=== PATIENT | female | born 1965 | race Caucasian/White ===

== ENCOUNTER 2020-05-08 08:13 | Outpatient (CLI) | payer BC, SELFPAY ==
--- NOTE | ~2020-05-08 | MM_ITS ---
EXAMINATION: MM screening [facility] HISTORY: Screening mammogram TECHNIQUE: Craniocaudal and mediolateral oblique 3-D tomosynthesis images were obtained and synthetic 2-D images were generated. CAD analysis was submitted and interpreted. COMPARISON: 01/11/2019, 11/15/2017, 09/29/2016 bilateral digital screening mammogram examinations BREAST PARENCHYMAL COMPOSITION: There are scattered areas of fibroglandular density. FINDINGS: There is no evidence of suspicious mass, calcification, or architectural distortion to sugg est malignancy in either breast. There has been no suspicious interval change. IMPRESSION: 1. No mammographic evidence of malignancy. 2. Recommend routine screening mammography in one year. BI-RADS Category 1: Negative Reviewed, dictated and finalized at location A. [employer]
== END 2020-05-08 08:14 | disposition home or self-care (01) ==
LOC: ANHIMG 08:16
PROVIDERS: Family Provider Family Medicine; PCP Family Medicine; Visit Provider Family Medicine
DX: Z12.31 Encounter for screening mammogram for malignant neoplasm of breast (principal)
CPT/HCPCS: 77063; 77067

== ENCOUNTER 2021-07-21 08:35 | Outpatient (CLI) | payer BC, SELFPAY ==
--- NOTE | ~2021-07-21 | MM_ITS ---
EXAMINATION: MM screening [facility] BI w k[facility] HISTORY: Screening TECHNIQUE: Craniocaudal and mediolateral oblique 3-D tomosynthesis images were obtained and synthetic 2-D images were generated. CAD analysis was submitted and interpreted. COMPARISON: Comparison to multiple prior studies sequentially, with oldest reviewed study dated 02/24. BREAST PARENCHYMAL COMPOSITION: There are scattered areas of fibroglandular density. FINDINGS: There is no evidence of suspicious mass, calcification, or architectural distortion to sugg est malignancy in either breast. There has been no suspicious interval change. IMPRESSION: 1. No mammographic evidence of malignancy. 2. Recommend routine screening mammography in one year. BI-RADS Category 1: Negative Reviewed, dictated and finalized at location A.
== END 2021-07-21 08:36 | disposition home or self-care (01) ==
LOC: ANHIMG 08:36
PROVIDERS: PCP Family Medicine; Visit Provider Family Medicine
DX: Z12.31 Encounter for screening mammogram for malignant neoplasm of breast (principal)
CPT/HCPCS: 77063; 77067

== ENCOUNTER 2021-10-12 09:53 | Outpatient (CLI) | payer BC, SELFPAY ==
--- NOTE | ~2021-10-12 | DEXA_ITS ---
Bone Density Report Name: MERY PATTERSON Age: 55 Sex: Female Ethnicity: White Date of : 1965 Indication: postmenopausal; screening for osteoporosis; height loss; Referring Provider: MILIND VASQUEZ Study: Bone densitometry was performed. Exam Date: October 12, 2021 Accession number: [id number] Bone Density: Region BMD T-score Z-score Classification AP Spine(L1-L4) 0.853 -1.8 -0.5 Osteopenia Femoral Neck (Left) 0.771 -0.7 0.5 Normal Total Hip (Left) 0.841 -0.8 0.0 Normal Femoral Neck (Right) 0.731 -1.1 0.1 Osteopenia Total Hip (Right) 0.833 -0.9 -0.1 Normal Total Hip Mean 0.837 -0.9 -0.1 Normal World Health Organization criteria for BMD impression classify patients as: Normal (T-score at or above -1.0), Osteopenia (T-score between -1.0 and -2.5), or Osteoporosis (T-score at or below -2.5). 10-year Fracture Risk(1): Major Osteoporotic Fracture 6.3% Hip Fracture 0.3% Reported Risk Factors: [place] (), Neck BMD=0.731, BMI=32.8 (1) FRAX(R) Version 3.08. Fracture probability calculated for an untreated patient. Fracture probability may be lower if the patient has received treatment. Clinical Information Provided by Patient: Patient maximum height was 67 Menopause Age: 52 Drinks caffeinated beverages Onset of menses at age 11 Number of children 2 Impression: The patient has low bone mass, based on the Total Spine T-score. The patient has an estimated ten-year risk of hip fracture of 0.3% and an estimated ten-year risk of major fracture of 6.3%, based on the WHO FRAX algorithm. Discussion: BONE DENSITY IS LOW AT ONE OR MORE SKELETAL SITES. This patient's lowest T-score is low at one or more skeletal sites. It meets the World Health Organization's (WHO) criteria for ?low bone mass? (T-score between -1.0 and -2.5). The patient's 10-year risk of fracture as calculated by FRAX is less than the threshold where pharmacological therapy is recommended by the National Osteoporosis Foundation (NOF). However, all treatment decisions require clinical judgment and consideration of individual patient factors, including patient preferences, comorbidities, previous drug use, risk factors not captured in the FRAX model (e.g., frailty, falls, vitamin D deficiency, increased bone turnover, interval significant decline in bone density) and possible under or overestimation of fracture risk by FRAX. The patient should follow a healthful lifestyle (good nutrition with adequate calcium and vitamin D, and appropriate weight-bearing exercise). Follow-Up: Consider repeating this study in 2 to 3 years to reassess this patient's status, or sooner if there is some new clinical indication. Reported by: VICTORIA on 10/12/2021 10:15:00 AM. Reviewed,
== END 2021-10-12 09:54 | disposition home or self-care (01) ==
LOC: ANHIMG 09:56
PROVIDERS: PCP Family Medicine; Visit Provider Physician Assistant
DX: Z13.820 Encounter for screening for osteoporosis (principal); M85.88 Other specified disorders of bone density and structure, other site; M85.851 Other specified disorders of bone density and structure, right thigh
CPT/HCPCS: 77080

== ENCOUNTER 2021-12-30 00:06 | Day surgery (SDC) | payer BC, SELFPAY ==
[2021-12-13 14:01] VITALS: BMI 31.4
[2021-12-30 07:19] VITALS: BP 131/86; PULSE 76; RESP 16; TEMP 36; O2SAT 100; BMI 29.3
[2021-12-30] MEDS: LACTATED RINGERS 1,000 ML 150 ML IV CONT (07:28)
--- NOTE | 2021-12-30 07:32 | PM.HPGS ---
History of Present Illness History of Present Illness Consent: Risks, benefits, and alternatives have been discussed and questions answered. Patient agrees to proceed with procedure. Chief complaint: family hx colon ca,family hx colon polyps,neoplasm Narrative: Georgina Araiza is a 56 year old female Presents for screening colonoscopy. Patient's current weight appetite and bowel movements are normal. She denies abdominal pain. She has had no bleeding. Family history is significant her mother had colon cancer. Patient herself has had polyps previously. Previous colonoscopy by Dr. Sorto 2016 was unremarkable. Adenomatous colon polyp was removed in 2011. Patient presents today for neoplasia screening. Review of Systems Review of Systems: Review of systems noncontributory. [facility] Past Medical History Medical History (Updated 12/27/21 @ 14:11 by Hola Taylor PA-C) History of mammogram (~01/11/19) negative History of Papanicolaou smear of cervix (~08/14/17) negative Postmenopausal Surgical History Surgical History H/O dilation and curettage History of 2 sections History of arthroscopy of knee (~2015) History of colonoscopy (~12/19/16) diverticulosis, repeat 5 years History of colonoscopy with polypectomy (~06/13/11) transverse colon polyp, repeat 5 years Family History Family History Father Hypertension Family history of elevated blood lipids Family history of cardiovascular disease Malignant neoplasm of prostate Grandparent Family history of cardiovascular disease Mother Carcinoma of colon Other Family history of arthritis No family history of diabetes mellitus Social History Social History Smoking status: Never smoker Alcohol intake: current Drinks per week: 6 Substance use type: does not use Living arrangements: with family Spiritual care concerns: No Meds Home Medications and Allergies Home Medications Medication Instructions Recorded Confirmed Type lisinopril 10 See Rx Instructions .Route 02/22/21 12/27/21 Rx mg-hydrochlorothiazide 12.5 mg .COMPLEX #90 tabs tablet atorvastatin 20 mg tablet 20 mg PO QHS #90 tabs 12/27/21 12/30/21 Rx calcium carbonate 600 mg-vitamin 1 tablet PO BID 12/27/21 12/30/21 History D3 20 mcg (800 unit) chewable tablet (Caltrate 600 plus D) diclofenac sodium 75 mg 75 mg PO BID #60 tabs 12/27/21 12/30/21 Rx tablet,delayed release levothyroxine 50 mcg capsule 50 mcg PO DAILY #90 caps 12/27/21 12/30/21 Rx fbkxuemb-spp-qcvie ac 400 1 tablet PO DAILY 12/27/21 12/30/21 History mcg-calcium carb 500 mg-vit K1 20 mcg tablet (Women's 50 Plus Multivitamin) Allergies Allergy/AdvReac Type Severity Reaction Status Date / Time No Known Allergies Allergy Verified 12/30/21 07:17 Vital Signs Vital Signs - 24 hr 12/30/21 07:19 Temperature 96.8 F L Pulse Rate 76 Respiratory Rate 16 Blood Pressure 131/86 Pulse Oximetry 100 Oxygen Delivery Room Air Exam Narrative: Physical exam reveals patient to be alert. Vital signs stable. HEENT exam is unremarkable. Patient is anicteric. Lungs are clear to auscultation and percussion. Heart is without murmur or extra sounds. Abdomen bowel sounds are present soft nontender with no organomegaly. Digital external rectal exam is normal. Assessment and Plan Assessment and plan (1) Family history of colon cancer: Code(s): Z80.0 - Family history of malignant neoplasm of digestive organs Status: Acute Assessment and Plan: Patient's mother had colon cancer. For this reason screening colonoscopy advised at 5 year intervals. (2) History of colon polyps: Code(s): Z86.010 - Personal history of colonic polyps Status: Acute Assessment and Plan:
--- NOTE | 2021-12-30 07:54 | WPDANESEPPF ---
Anes - Initial Pre Proc Eval Procedure: Operation Date: 12/30/21 08:30 Proposed Procedures p Screening Colonoscopy - Truong Purdy MD Date/Time: 12/30/21 07:54 Surgeon: Truong Purdy MD Pre Op Diagnosis: family hx colon ca,family hx colon polyps,neoplasm Patient Data Age: 56 Gender: F Height: 1.7 m Weight: 85.1 kg Last Vital Signs Temp 96.8 F L 12/30/21 07:19 Pulse 76 12/30/21 07:19 Resp 16 12/30/21 07:19 BP 131/86 12/30/21 07:19 Pulse Ox 100 12/30/21 07:19 O2 Del Method Room Air 12/30/21 07:19 Allergies Allergy/AdvReac Type Severity Reaction Status Date / Time No Known Allergies Allergy Verified 12/30/21 07:17 Home Medications Medication Instructions Recorded Confirmed Type lisinopril 10 See Rx Instructions .Route 02/22/21 12/27/21 Rx mg-hydrochlorothiazide 12.5 mg .COMPLEX #90 tabs tablet atorvastatin 20 mg tablet 20 mg PO QHS #90 tabs 12/27/21 12/30/21 Rx calcium carbonate 600 mg-vitamin 1 tablet PO BID 12/27/21 12/30/21 History D3 20 mcg (800 unit) chewable tablet (Caltrate 600 plus D) diclofenac sodium 75 mg 75 mg PO BID #60 tabs 12/27/21 12/30/21 Rx tablet,delayed release levothyroxine 50 mcg capsule 50 mcg PO DAILY #90 caps 12/27/21 12/30/21 Rx oaqwbpro-kaa-pqffm ac 400 1 tablet PO DAILY 12/27/21 12/30/21 History mcg-calcium carb 500 mg-vit K1 20 mcg tablet (Women's 50 Plus Multivitamin) Patient hx anesthesia problems: none Family hx anesthesia problems: none Results Review: All pre-operative results and documents have been reviewed as part of the pre-operative evaluation. [facility] Past Medical History Medical History (Updated 12/27/21 @ 14:11 by Hola Taylor PA-C) History of mammogram (~01/11/19) negative History of Papanicolaou smear of cervix (~08/14/17) negative Postmenopausal Surgical History Surgical History H/O dilation and curettage History of 2 sections History of arthroscopy of knee (~2015) History of colonoscopy (~12/19/16) diverticulosis, repeat 5 years History of colonoscopy with polypectomy (~06/13/11) transverse colon polyp, repeat 5 years Family History Family History Father Hypertension Family history of elevated blood lipids Family history of cardiovascular disease Malignant neoplasm of prostate Grandparent Family history of cardiovascular disease Mother Carcinoma of colon Other Family history of arthritis No family history of diabetes mellitus Social History Social History Smoking status: Never smoker Alcohol intake: current Drinks per week: 6 Substance use type: does not use Living arrangements: with family Spiritual care concerns: No Anes - Eval Final PreProcedure Day of Procedure 12/30/21 07:54 Patient weight: obese Heart: regular rate and rhythm Lungs: clear to auscultation Airway: Mallampati scale class II Neurological: alert and oriented Last oral intake: >/= 8 hours ASA classification: II Emergent: no Anesthetic plan: proceed Anesthesia type and monitoring: general GIVS and standard monitoring Results Review: All pre-operative results and documents have been reviewed as part of the pre-operative evaluation. Informed Consent: The patient's anesthetic plan and its attendant risks and benefits were discussed with the patient/family/POA. Questions were solicited and answers provided to the satisfaction of the patient/family/POA.
--- NOTE | 2021-12-30 08:44 | SUR.OPER ---
No specimen retrieved for transverse colon polyp Dr. Purdy notified.
[2021-12-30 08:45] VITALS: BP 113/67; PULSE 75; RESP 19; O2SAT 95
[2021-12-30 08:55] VITALS: BP 108/67; PULSE 63; RESP 19; O2SAT 97
[2021-12-30 09:05] VITALS: BP 119/76; PULSE 63; RESP 16; O2SAT 99
== END 2021-12-30 09:11 | disposition home or self-care (01) ==
PROVIDERS: PCP Emergency Medicine; Visit Provider Internal Medicine Gastroenterology
PROC: 0DJD8ZZ Inspection of Lower Intestinal Tract, Via Natural or Artificial Opening Endoscopic (ICD-10-PCS; CPT 45378; principal; 2021-12-30 08:30)
DX: Z12.11 Encounter for screening for malignant neoplasm of colon (principal); K63.5 Polyp of colon; Z80.0 Family history of malignant neoplasm of digestive organs; E03.9 Hypothyroidism, unspecified
CPT/HCPCS: 45385; J2704; J7120

== ENCOUNTER 2022-08-31 13:47 | Outpatient (CLI) | payer BC, SELFPAY ==
--- NOTE | ~2022-08-31 | MM_ITS ---
EXAMINATION: MM screening [facility] BI w kenny HISTORY: Screening TECHNIQUE: Craniocaudal and mediolateral oblique 3-D tomosynthesis images were obtained and synthetic 2-D images were generated. CAD analysis was submitted and interpreted. COMPARISON: Comparison to multiple prior studies sequentially, with oldest reviewed study dated 08/2016. BREAST PARENCHYMAL COMPOSITION: There are scattered areas of fibroglandular density. FINDINGS: There is no evidence of suspicious mass, calcification, or architectural distortion to sugg est malignancy in either breast. There has been no suspicious interval change. IMPRESSION: 1. No mammographic evidence of malignancy. 2. Recommend routine screening mammography in one year. BI-RADS Category 1: Negative Reviewed, dictated and finalized at location A.
== END 2022-08-31 13:48 | disposition home or self-care (01) ==
LOC: ANHIMG 13:49
PROVIDERS: PCP Emergency Medicine; Visit Provider Physician Assistant
DX: Z12.31 Encounter for screening mammogram for malignant neoplasm of breast (principal)
CPT/HCPCS: 77063; 77067

== ENCOUNTER 2022-11-14 08:15 | Outpatient (RCR) | payer BC, SELFPAY ==
--- NOTE | 2022-11-04 15:02 | OPREHPOC ---
Outpatient Therapy Plan of Care This is a Multidisciplinary Plan of Care that may contain components documented by all disciplines (PT, OT, and ST.) PT Problem 1 PT Problem #1 Knowledge Deficit PT Goal 1 Goal Pt to be IND with issued HEP Target Visit 8 PT Problem 2 PT Problem #2 Pain PT Goal 1 Goal Pt to report pain no greater than 3/10 in the last week Target Visit 8 PT Goal 2 Goal Pt to report 75% improvement in overall symptoms Target Visit 8 PT Problem 3 PT Problem #3 Impaired Gait PT Goal 1 Goal Pt to ambulate with upright trunk posture. Target Visit 8 PT Problem 4 PT Problem #4 Impaired Strength PT Goal 1 Goal Pt to improve valente hip strength to 4+/5 Target Visit 8 PT Goal 2 Goal Pt to demonstrate 30lb lift and carry from ground level Target Visit 8 PT Problem 5 PT Problem #5 Pain PT Goal 1 Goal Pt to report completing a 2 mile walk without an increase in symptoms Target Visit 8
--- NOTE | 2022-11-04 15:03 | PTOPEVAL1 ---
Assessment and note entered by Sunil Yoon, PT, DPT Evaluation Information Assessment Status Evaluation Diagnosis R leg pain Onset 1 week Subjective Information Pt report initial medial thigh and groin pain, she was given muscle relaxers which have caused the pain to shift to her anterior/lateral thigh down to her knee, and low back. Pt declines a JERRY. Pt states she can stand no longer than 5 mins, and walk no more than 10 mins. Up until she this started she was walking her dog 2-3 miles a day. Pt rates her current pain as 10/10. Reported Pain Level Pain Score 10: Self Report Assessment PT Clinical Summary Georgina presents to therapy today for her initial evaluation with a diagnosis of R leg pain. Today she demonstrates decreased active lumbar motion in all directions with the most painful being extension. Pt demonstrates a flexion bias with proximation of symptoms with repeated motion and a maintained spinal neutral position in supine. She demonstrates valente hip weakness. She stands and ambulated with increased lumbar extension. Skilled therapy services are indicated to manage pain, to decreased peripheral symptoms, to improve standing posture, and to return to PLOF. Plan of Care Interventions Electrical Stimulation,Gait Training,Hot Pack/Cold Pack,Manual Therapy,Neuro Re-education,Patient/ Caregiver Educati,Therapeutic Activities, Therapeutic Exercise PT Services Indicated Yes Treatment Frequency and 2x/wk for 8 visits Duration These treatments will address the objective and functional deficits as defined above. The patient will be advanced safely and appropriately in order for the patient to progress towards his/her prior level of function. Additional exercises will be introduced and as well as a comprehensive home exercise program upon discharge, if needed, ?to ensure carryover of functional gains achieved in the clinic. This treatment plan has been reviewed and agreement upon by the patient.
--- NOTE | 2022-12-05 10:20 | PCPTNOTE ---
Patient did not show up for scheduled re-evaluation this date. Called and LVM with instructions to call clinic to follow up.
--- NOTE | 2022-12-05 11:40 | PTOPDC ---
Assessment and note entered by Sunil Yoon, PT, DPT Evaluation Information Assessment Status Discharge - Pt Not Present Diagnosis R leg pain Onset 1 week Subjective Information Pt called and states she is doing well and no longer needs therapy. Assessment PT Clinical Summary Georgina completed 4 visits of skilled therapy from tp 11/14/22. Per pt she is doing well and does not need additional therapy. She will be discharged at this time.
== END 2022-12-05 13:10 | disposition home or self-care (01) ==
LOC: ANHGOSHPT 08:15
PROVIDERS: PCP Emergency Medicine; Visit Provider Nurse Practitioner
DX: M79.604 Pain in right leg (principal)
CPT/HCPCS: 97012; 97110; 97112; 97161; 97530; 99199

== ENCOUNTER 2023-12-06 08:39 | Outpatient (CLI) | payer BC, SELFPAY ==
--- NOTE | ~2023-12-06 | MM_ITS ---
EXAMINATION: MM screening [facility] BI w kenny HISTORY: Screening mammogram TECHNIQUE: Craniocaudal and mediolateral oblique 3-D tomosynthesis images were obtained and synthetic 2-D images were generated. CAD analysis was submitted and interpreted. COMPARISON: 08/31/2022, 07/21/2021, 05/08/2020 BREAST PARENCHYMAL COMPOSITION:Not Dense. There are scattered areas of fibroglandular density. FINDINGS: No suspicious mass, calcification, or architectural distortion are identified in either christina ast to suggest malignancy. There has been no suspicious interval change. IMPRESSION: No mammographic evidence of malignancy. Recommend routine screening mammography in one year. BI-RADS Category 1: Negative Reviewed, dictated and finalized at location .
== END 2023-12-06 08:40 | disposition home or self-care (01) ==
LOC: ANHIMG 08:42
PROVIDERS: PCP Emergency Medicine; Visit Provider Emergency Medicine
DX: Z12.31 Encounter for screening mammogram for malignant neoplasm of breast (principal)
CPT/HCPCS: 77063; 77067

== ENCOUNTER 2024-05-17 09:58 | Outpatient (CLI) | payer BC, SELFPAY ==
--- NOTE | ~2024-05-17 | XR_ITS ---
Left Knee Technique: AP, lateral, and sunrise views were obtained. Clinical History: Pain Findings: No fracture or dislocation is seen. There is moderate tricompartmental degenerative change with medial compartment narrowing.. Soft tissues are unremarkable. No joint effusion is seen. Impression: Degenerative change, as above. Reviewed, dictated and finalized at location . [employer] Impression: Degenerative change, as above.
== END 2024-05-17 09:59 | disposition home or self-care (01) ==
LOC: GOSHIMG 09:59
PROVIDERS: PCP Clinical Nurse Specialist; Visit Provider Clinical Nurse Specialist
DX: M25.562 Pain in left knee (principal); M17.12 Unilateral primary osteoarthritis, left knee
CPT/HCPCS: 73562